=== PATIENT | female | born 1990 | race Two or more races ===

== ENCOUNTER 2019-12-02 12:37 | Outpatient (AMB) | payer MEDICAID, SELFPAY ==
--- NOTE | 2019-12-02 14:02 | URCARE_ITS ---
Intake Ht./Wt. Decline/Exclusions Patient Declined Height and Weight this visit: No PT Meets exclusion criteria: No Vital Signs 12/02/19 14:05 Height 5 ft 2 in Height Method Measured Weight 91.626 kg Weight Measurement Method Standing Scale BMI 36.9 Temp 98.5 F Temp Source Temporal Artery Scan Pulse 71 Pulse Source Monitor Respiration 18 BP 130/80 Blood Pressure Source Automatic Cuff Blood Pressure Location Right Upper Arm Position Sitting Pulse Oximetry (%) 99 Oxygen Delivery Method Room Air Comment pt is 8 wks Intake [employer] (last 14 days): No [employer] (last 14 days): No Been in Contact w/Anyone Being Evaluated for Coronavirus (last 14 days): No Been in Close Contact w/Anyone Dx w/Coronavirus: No Zika Travel: No Been in contact w/anyone who has been Dx w/Zika Virus: No Been in contact w/anyone sick during travel outside country: No Patient >or equal to 18 years BMI outside of range 18.5-24.9: Yes Visit Reasons: UC Urinary Tract Infection Primary Care Provider: Shane Trivedi Is patient in pain?: Yes Pain Location:: pelvic/urethral Lacey-Boyd/Numerical: 8 Pain Scale Used: Numeric (1 - 10) Triage Triage Allergy / Med Rec Allergies No Known Allergies Allergy (Unknown, Verified 12/02/19 14:21) Medication Reconciliation No Known Home Medications 12/02/19 [History Confirmed 12/02/19] acetaminophen ER 650 mg tablet,extended release 650 mg PO Q8H 10 Days #30 tab 12/02/19 [Rx] nitrofurantoin monohydrate/macrocrystals 100 mg capsule 100 mg PO Q12H 7 Days #14 cap 12/02/19 [Rx] Band Placement: Patient Identification TOMÁS: 1-Yao-Yeangx Arrival Mode of Arrival: Private Vehicle Method of Arrival: Ambulatory Accompanied By: Self Prehospital Treatment: none PCP or OBGYN visit in last 3 months: Yes Language Preferred Language: [place] Middle [employer] Tutor Required: No Female History Now: Yes Weeks Gestation: 8 Last Menstrual Period: 10/15/19 Expected Date of Delivery: 07/07/20 : No Social History Alcohol / Drugs Hx Alcohol Use: No Hx Substance Use: No Safety Do You Feel Safe at Home: Yes Authorities Contacted: N/A [place] Fall Scale Special Populations Patient Comatose, Paralyzed or Immobile: No Patient Under the Age of 44 Years Old: No Assessment History of falling; immediate or within 3 months: No Secondary diagnosis: No Ambulatory aid: None IV Infusion: No Gait/Transferring: Normal/bedrest/immobile Mental Status: Oriented to own ability Score Score: 0 Risk Level/Action Risk Level: Low Risk Action: Good Basic Nursing Care Fall Star Level 1 Fall Star Level 1: Yes Patient Education Topic Education Topics: Plan of Care Teaching Recipient: Patient Readiness, Motivation to Learn: Active Methods: Verbal instruction Educ Materials Suggested by INFO Button/Rx Monograph Given: No Response: Verbalize Understanding Middle School Tutor Required: No [facility] Hx Congestive Heart Failure: No Hx Diabetes Mellitus Type 1: No Hx Diabetes Mellitus Type 2: No Hx Renal Disease: No Hx Chronic Obstructive Pulmonary Disease (COPD): No Past Medical History Reviewed and agree with Nursing documentation.: Yes Past Medical History History Provided By: Medical Record and Patient Past Medical History: Yes Cardiac Medical History Hx Congestive Heart Failure: No Endocrine Medical History Hx Diabetes Mellitus Type 1: No Hx Diabetes Mellitus Type 2: No Genitourinary Medical History Hx Renal Disease: No Respiratory Medical History Hx COPD: No ENT Surgical History Hx Tonsillectomy: Yes HPI UTI - Female Current symptoms: Reports dysuria and urinary urgency HPI Comments Details: 29-year-old female who is currently 8 weeks presents to the clinic with complaint of urinary urgency and frequency for the past 48 hours. She denies shortness of breath, cough, fever, chills or flank pain, she denies tobacco or alcohol use. She denies any recent travel Review of Systems (UC) Review of Systems All systems reviewed & no additional complaints except as documented Const Constitutional: Reports as per HPI and Denies headache(s) Eyes Eyes: Reports as per HPI, Denies bulging eyes and Denies change in vision ENT Ears. Nose, Mouth, and Throat: Reports as per HPI, Denies ear pain and Denies headache(s) Card Cardiovascular: Denies chest pain, Denies chest pain at rest and Denies foot sweeling Resp Respiratory: Denies chest congestion, Denies cough and Denies pain on inspiration GI Gastrointestinal: Denies belching and Denies change in bowel habits Genitourinary: Reports as per HPI, Reports painful urination and Reports urinary urgency Neuro Neurologic: Denies headache(s) Exam (UC) Limitations: no limitations, altered mental status and language barrier Head exam: atraumatic, normocephalic and normal inspection Eye exam: Reports normal appearance and Reports EOMI ENT exam: Present normal exam, TM's normal bilaterally and normal oropharynx Chest/Breast Exam: Present normal inspection SPO2%: 99% Respiratory exam: Present normal lung sounds bilaterally and normal respiratory effort Cardiovascular exam: Present regular rate and regular rhythm Abdominal Exam: Present non-distended; Absent ascites, Fong's sign and tenderness at McBurney's Point Abdominal tenderness: Present mild and suprapubic Neurological Exam: Present alert, awake and oriented X3 Speech: Present fluid speech Office Procedures Level of Care Nursing/Assessment/Reassessment Patient Status: Established Patient Nursing Assessment/Reassessment: Triage Asessment, Initial Vital Signs and RN General Assessments Coordination of Care: DC Instructions Simple 1-2 sets, Lab/Imaging Orders and Specimen Collection Established Patient Charge Established Patient Point Assignment: 65 Established Patient Point Assignment: EP Level 2 (40-75) Procedures: Pulse Ox reading: Yes Assessment and Plan Assessment & Plan (1) Urinary tract infection: Plan Details Other Medications: New: nitrofurantoin monohyd/m-cryst 100 mg (Macrobid) must administer with a meal/food 100 mg PO Q12H 7 days 14 caps 0RF acetaminophen ER (Tylenol 8 Hour) 650 mg PO Q8H 10 days 30 tabs 0RF Other Orders: Orders: Urine Chem 10, Urgent Care Today Urine Culture Today Primary Care Provider: Shane Trivedi Instructions: Anatomy Urinary Tract Fem ED UTI Cystitis Female Additional Information PA/MEMORIAL ADVISER Supervising Physician: Doc Ken DC Evaluation Discharge Information Seen, Treated and Released by Provider: No Left Prior to Receiving Discharge Instructions: No Transfer to Outside Facility: No Vital Signs Vitals Signs N/A: Yes Discharge Information Condition on Discharge: Stable Mode of Discharge: Ambulatory Discharge Transportation: Private Vehicle Instructions Middle School Tutor Required: No Discharge Instructions Given To: Patient Was Follow up Care Ordered: Yes Verbalizes Understanding of Discharge Instructions: Yes [facility] information card provided?: No Patient plan follow up w/PCP for [facility]: No
[2019-12-02 14:05] VITALS: BP 130/80; PULSE 71; RESP 18; TEMP 36.9; O2SAT 99; BMI 36.9
[2019-12-02 14:15] LABS: Bilirubin,Urine Clinitek Negative (Negative); Blood,Urine Clinitek 2+ (Negative); Glucose, Urine Clinitek Negative (Negative); Ketones,Urine Clinitek 3+ (Negative); Leukocyte Esterase,Urine Clin 3+ (Negative); Nitrite,Urine Clinitek Positive (Negative); Protein,Urine Clinitek Trace (Neg - Trace); Specific Gravity,Urine Clin 1.015 (1.001-1.030); Urobilinogen,Urine Clinitek 0.2 mg/dL (0.0-1.0)
== END 2019-12-02 14:32 | disposition home or self-care (01) ==
PROVIDERS: Referring Provider Physician Assistant; Visit Provider Physician Assistant

== ENCOUNTER 2024-10-26 16:42 | Emergency (ER) | payer MEDICAID, SELFPAY ==
[2024-10-26 16:42] VITALS: BMI 29.8
[2024-10-26 16:51] VITALS: BP 109/70; PULSE 76; RESP 18; TEMP 36.8; O2SAT 97
--- NOTE | 2024-10-26 17:50 | XR_ITS ---
Examination: Abdomen sonogram, Limited Date and time of exam: October 26, 2024 1837 hrs. Indications: Right upper abdominal pain after eating beginning one week ago Technique: Real-time duarte scale transabdominal sonographic images of the upper abdomen obtained. Findings: Multiple gallstones, gallbladder wall 0.3 cm no edema Common bile duct 0.5 cm Pancreatic head 3.0 cm Liver 15.4 cm fatty infiltration smooth contour no focal liver lesions Normal hepatopedal portal venous flow Patent IVC Impression: Cholelithiasis, negative for cholecystitis
--- NOTE | 2024-10-26 17:51 | PD.EDRME ---
Rapid Medical Screening Exam RME Arrival date/time: 10/26/24 16:42 84-year-old female presents emergency department with complaints of upper epigastric abdominal pain for 1 week. History of gastric sleeve I have greeted and performed a focused initial assessment of this patient. Initial appropriate labs ordered at this time. A comprehensive ED assessment and evaluation of the patient and analysis of all test and completion of medical decision making process will be conducted by additional ED provider. Chief Complaint: Abdominal Pain Time Seen by Provider: 10/26/24 17:32 Vital signs: Vital Signs Temperature 98.3 F 10/26/24 16:51 Pulse Rate 76 10/26/24 16:51 Respiratory Rate 18 10/26/24 16:51 Blood Pressure 109/70 10/26/24 16:51 Pulse Oximetry (%) 97 10/26/24 16:51 Oxygen Delivery Method Room Air 10/26/24 16:51
[2024-10-26 18:24] LABS: Basophils # (Auto) 0.1 Thou/mm3 (0.0-0.2); Basophils % (Auto) 1 % (0-2.5); Eosinophils # (Auto) 0.1 Thou/mm3 (0.0-0.5); Eosinophils % (Auto) 2 % (0-10); Immature Granulocytes % (Auto) 0 % (0-0); Immature Granulocytes Auto 0.01 Thou/mm3 (0.00-0.00); Lymphocytes # (Auto) 2.5 Thou/mm3 (1.0-4.8); Lymphocytes % (Auto) 37 % (10-50); Mean Corpuscular HGB Conc 28.6 g/dl (31.0-37.0); Mean Corpuscular Hemoglobin 18.7 pg (25.0-35.0); Mean Corpuscular Volume 65 fL (80-100); Monocytes # (Auto) 0.4 Thou/mm3 (0.0-0.8); Monocytes % (Auto) 6 % (0-12); Neutrophils # (Auto) 3.5 Thou/mm3 (1.8-7.7); Neutrophils % (Auto) 54 % (37-80); Nucleated Red Blood Cell % 0 /100 WBC (0); Platelet Count 317 Thou/mm3 (140-440); RDW Standard Deviation 40.3 fL (36.4-46.3); Red Blood Count 4.28 Miln/mm3 (4.00-5.20); White Blood Count 6.6 Thou/mm3 (3.6-11.0)
[2024-10-26 18:44] LABS: Alanine Aminotransferase 17 U/L (10-49); Albumin, Serum 4.6 gm/dL (3.5-5.0); Albumin/Globulin Ratio 1.5 (1.2-2.2); Alkaline Phosphatase 66 U/L (46-116); Anion Gap 5 (7-16); Aspartate Amino Transferase 19 U/L (0-34); BUN/Creatinine Ratio 28 Ratio (12-20); Bilirubin,Total 0.4 mg/dL (0.3-1.2); Blood Urea Nitrogen 17 mg/dL (9-23); Calcium 8.9 mg/dL (8.3-10.6); Calcium (Corrected) 8.9 mg/dL (8.5-10.1); Carbon Dioxide 23.9 mMol/L (20.0-31.0); Chloride 109 mMol/L (98-107); Creatinine (Component) 0.6 mg/dL (0.6-1.3); Estimated Creatinine Clearance 121.9 mL/min (>60); Glucose 91 mg/dL (74-106); Lipase 49 U/L (12-53); Osmolality,Calculated 277 (275-295); Potassium 3.8 mMol/L (3.4-5.1); Sodium 138 mMol/L (136-145); Total Protein 7.6 gm/dL (5.7-8.2); eGFR > 60 See Note
[2024-10-26 19:26] LABS: Collection Type, Urine Clean Catch
[2024-10-26 19:47] LABS: Bilirubin,Urine Negative (Negative); Blood,Urine Negative (Negative); Clarity,Urine Clear (Clear/Hazy); Color,Urine Lt-Yellow (Lt Yel-Yel); Glucose, Urine Negative (Negative); Ketones,Urine Negative (Negative); Leukocyte Esterase,Urine Negative (Negative); Nitrite,Urine Negative (Negative); Protein,Urine Trace (Neg - Trace); RBC,Urine 4 /hpf (0-3); Specific Gravity,Urine 1.036 (1.001-1.035); Squamous Epithelial Cell,Urine 3 /hpf (0-5); Urobilinogen,Urine Negative mg/dL (0.0-1.0); WBC,Urine 1 /hpf (0-5)
--- NOTE | 2024-10-26 19:55 | EDNOTE_ITS ---
ED Abdominal Pain RME/HPI General Chief Complaint: Abdominal Pain Stated complaint: ABDOMINAL PAIN X1 WEEK Time seen by provider: 10/26/24 17:32 Arrival date/time: 10/26/24 16:42 RME / HPI RME / HPI narrative: 34-year-old female patient with a significant history of gastric sleeve, came in for evaluation regarding epigastric pain, for 1 week, it comes and goes, usually after eating, severity moderate described as crampy. Denies any vomiting denies any fever denies any diarrhea denies any constipation denies any other complaints. No medications taken prior to arrival. Related Data Home Medications ?Medication ?Instructions ?Recorded ?Confirmed vits no.124-ferrous fum 1 tab PO QDAY 05/09/23 06/23/24 27 mg iron-folic acid 800 mcg tablet ( Vitamin) ferrous sulfate 325 mg (65 mg 325 mg PO DAILY 06/23/24 06/23/24 iron) tablet (iron) Previous Rx's ?Medication ?Instructions ?Recorded docusate sodium 100 mg capsule 100 mg PO BID #60 caps 06/23/24 (Colace) ibuprofen 600 mg tablet 600 mg PO Q6H PRN pain #90 tabs 06/23/24 lanolin 50 % topical ointment 1 applic topical TID PRN skin 06/23/24 irritation #15 tubes dicyclomine 20 mg tablet 20 mg PO QID PRN abdominal pain 10/26/24 #30 tabs Allergies Allergy/AdvReac Type Severity Reaction Status Date / Time No Known Allergies Allergy Unknown Verified 10/26/24 16:45 Course Quality Measures none Orders Category Date Time Status US gall bladder Stat Exams 10/26/24 17:50 Completed CBC Stat Lab 10/26/24 18:14 Completed Comprehensive Metabolic Panel Stat Lab 10/26/24 18:14 Completed HCG Qualitative,Urine Stat Lab 10/26/24 19:03 Received Lipase Stat Lab 10/26/24 18:14 Completed Urinalysis Stat Lab 10/26/24 19:03 Received Vital Signs Vital signs: Vital Signs Temperature 98.3 F 10/26/24 16:51 Pulse Rate 76 10/26/24 16:51 Respiratory Rate 18 10/26/24 16:51 Blood Pressure 109/70 10/26/24 16:51 Pulse Oximetry (%) 97 10/26/24 16:51 Oxygen Delivery Method Room Air 10/26/24 16:51 Abdominal Pain MDM MDM Narrative MDM Narrative:: 34-year-old female patient with a significant history of gastric sleeve, came in for evaluation regarding epigastric pain, for 1 week, it comes and goes, usually after eating, severity moderate described as crampy. Denies any vomiting denies any fever denies any diarrhea denies any constipation denies any other complaints. No medications taken prior to arrival. Patient's workup is significant for cholelithiasis with no sign of acute cholecystitis. LFTs are normal no leukocytosis noted. Patient clinically is not having sign of acute cholecystitis. Patient still discharged home Patient data External records reviewed:: None Clinical information provided by:: none Social determinants that could affect healthcare access:: none Patient has the following chronic illnesses:: History of gastric sleeve How is presenting disease/condition affected by chronic disease/condition?: exacerbated by Evaluation data The following diagnostics were reviewed and interpreted by me:: lab results and radiology exam(s) Lab and/or radiology exams considered but not ordered:: None Interpretation Summary: Laboratory workup came back unremarkable. Ultrasound showed cholelithiasis with no sign of acute cholecystitis. Medications / Prescriptions Medications or Prescriptions considered but not ordered:: None Medication administrations:: None Consultations Consultation(s) initiated? (list below): No Diagnosis Differential diagnosis abdominal pain: abdominal pain, pancreatitis and other (Gallstone) Most likely diagnosis given after review of the tests above:: Gallstone Admission Indicated Admission indicated?: not indicated Admission Request Was there a request for admission?: No Disposition Plan Disposition Plan: Discharge Discharge Attestation Discharge Attestation: The patient and all family members were given an opportunity to ask questions and understood the discharge instructions. Discharge instructions specifically effects, indications for sooner follow up or return to the emergency department, and the expected course of current diagnosis. Patient condition: Stable Discharge Plan Plan Patient Disposition: HOME (Self Care) Disposition Comment: stable Prescriptions/Referrals Prescriptions/Med Rec: New dicyclomine 20 mg tablet 20 mg PO QID PRN (Reason: abdominal pain) Qty: 30 0RF No Action Vitamin 27 mg iron- 800 mcg Tablet 1 tab PO QDAY ferrous sulfate [iron] 325 mg (65 mg iron) Tablet 325 mg PO DAILY docusate sodium [Colace] 100 mg capsule 100 mg PO BID Qty: 60 0RF ibuprofen 600 mg tablet 600 mg PO Q6H PRN (Reason: pain) Qty: 90 0RF lanolin 50 % ointment 1 applic topical TID PRN (Reason: skin irritation) Qty: 15 0RF Referrals: Shane Trivedi MD [Primary Care Provider] - In 1 week Problem List Clinical Impression: Biliary colic, Gallstone Patient/Caregiver Discharge Instructions Discharge Activity: activity as tolerated Education Materials: What Are Gallstones, Treating Gallstones Additional Instructions: Thank you for the opportunity for serving you today. You are stable for discharged . You are advised to: Follow-up with your PCP in 1 to 2 days and ask for referral to general surgeon Return to ED for worsening of symptoms Increase oral fluids Take medication as prescribed Please avoid eating fatty, greasy, fried foods Print Language: Kyrgyz Stand Alone Forms: Anita Award Info., Patient Portal Info Letter PA/BOAT DIESEL MOTOR MECHANIC Supervising Physician ELVIS/BOAT DIESEL MOTOR MECHANIC Supervising Physician: MD Jose Enrique
[2024-10-26 20:05] LABS: HCG Qualitative,Urine Negative
== END 2024-10-26 20:03 | disposition home or self-care (01) ==
PROVIDERS: Nurse Practitioner Primary Care; Emergency Provider Emergency Medicine; PCP Family Medicine
DX: K80.70 Calculus of gallbladder and bile duct without cholecystitis without obstruction (principal)
CPT/HCPCS: 36415; 76705; 80053; 81001; 81025; 83690; 85025; 99284

== ENCOUNTER 2025-01-24 17:21 | Emergency (ER) | payer MEDICAID, SELFPAY ==
[2025-01-24 18:03] VITALS: BP 126/77; PULSE 75; RESP 18; TEMP 37.3; O2SAT 99; BMI 29.2
[2025-01-24 18:57] LABS: Basophils % (Auto) 1 % (0-2.5); Eosinophils # (Auto) 0.1 Thou/mm3 (0.0-0.5); Eosinophils % (Auto) 1 % (0-10); Hematocrit 29.8 % (36.0-46.0); Immature Granulocytes % (Auto) 0 % (0-0); Immature Granulocytes Auto 0.01 Thou/mm3 (0.00-0.00); Lymphocytes # (Auto) 2.1 Thou/mm3 (1.0-4.8); Lymphocytes % (Auto) 34 % (10-50); Mean Corpuscular HGB Conc 29.2 g/dl (31.0-37.0); Mean Corpuscular Hemoglobin 18.4 pg (25.0-35.0); Mean Corpuscular Volume 63 fL (80-100); Monocytes # (Auto) 0.3 Thou/mm3 (0.0-0.8); Monocytes % (Auto) 6 % (0-12); Neutrophils # (Auto) 3.6 Thou/mm3 (1.8-7.7); Neutrophils % (Auto) 59 % (37-80); Nucleated Red Blood Cell % 0 /100 WBC (0); Platelet Count 300 Thou/mm3 (140-440); RDW Standard Deviation 39.3 fL (36.4-46.3); Red Blood Count 4.73 Miln/mm3 (4.00-5.20); White Blood Count 6.1 Thou/mm3 (3.6-11.0)
--- NOTE | 2025-01-24 19:14 | PD.EDDIZZY ---
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 Limitations: no limitations Related Data Home Medications ?Medication ?Instructions ?Recorded ?Confirmed vits no.124-ferrous fum 1 tab PO QDAY 05/09/23 06/23/24 27 mg iron-folic acid 800 mcg tablet ( Vitamin) ferrous sulfate 325 mg (65 mg 325 mg PO DAILY 06/23/24 06/23/24 iron) tablet (iron) Previous Rx's ?Medication ?Instructions ?Recorded docusate sodium 100 mg capsule 100 mg PO BID #60 caps 06/23/24 (Colace) ibuprofen 600 mg tablet 600 mg PO Q6H PRN pain #90 tabs 06/23/24 lanolin 50 % topical ointment 1 applic topical TID PRN skin 06/23/24 irritation #15 tubes dicyclomine 20 mg tablet 20 mg PO QID PRN abdominal pain 10/26/24 #30 tabs Allergies Allergy/AdvReac Type Severity Reaction Status Date / Time No Known Allergies Allergy Unknown Verified 01/24/25 17:23 Review of Systems Review of Systems Systems Reviewed: All systems reviewed, normal except as documented Constitutional Constitutional: Reports system reviewed and no additional complaints, except as documented, Denies fever(s), Denies headache(s) and Reports weakness ENT Ears, Nose, Mouth, and Throat: Denies disequilibrium, Denies headache(s) and Reports vertigo Cardiovascular Cardiovascular: Reports system reviewed and no additional complaints, except as documented, Denies chest pain and Denies dyspnea Respiratory Respiratory: Reports system reviewed and no additional complaints, except as documented, Denies cough and Denies dyspnea Gastrointestinal Gastrointestinal: Reports system reviewed and no additional complaints, except as documented, Denies abdominal pain, Denies nausea and Denies vomiting Neurologic Neurologic: Reports system reviewed and no additional complaints, except as documented, Reports as per HPI, Denies confusion, Denies disequilibrium, Denies headache(s), Reports vertigo and Reports weakness Psychiatric Psychiatric: Denies confusion Past Medical History Past Medical History NEUROLOGIC: Negative Neurological Disorders or Seizures CARDIAC: Negative Cardiac Disorders or Congestive Heart Failure RESPIRATORY: Negative Chronic Obstructive Pulmonary Disease (COPD) or Asthma GASTROINTESTINAL: Negative Gastrointestinal Disorders GENITOURINARY: Negative Genitourinary Disorders or Renal Disease MUSCULOSKELETAL: Negative Musculoskeletal Disorders or Scoliosis ENDOCRINE: Negative Endocrine Disorders, Diabetes Mellitus Type 1 or Diabetes Mellitus Type 2 HEMATOLOGIC: Positive Blood Disorders (06/05/24, received 3 units) and Anemia PSYCHO/SOCIAL: Negative Depression, Anxiety or Depression OTHER HISTORY: Positive Hospitalization (PTL at 35 weeks) and Blood Transfusions; Negative Autoimmune Disease, Blood Transfusion Reaction or Anesthesia Reactions Family History FAMILY HISTORY: Positive Family Cardiac Disorders (granparents heart disease); Negative Family Psychiatric Problems, Family Respiratory Disorders, Family Gastrointestinal Problems, Family Cancer, Family Surgery or Family Anesthesia Reaction Surgical History SURGICAL: Positive Tonsillectomy (10 years old); Negative Section Social History SMOKING STATUS: Never smoker ED Exam General Limitations: Present no limitations General appearance: Present alert and in no apparent distress Head Head exam: Present atraumatic Eye Eye exam: Present normal appearance, PERRL and EOMI ENT ENT exam: Present normal exam, normal oropharynx and mucous membranes moist Neck Neck exam: Present normal inspection, full ROM and trachea midline Chest Chest inspection: Present normal inspection and symmetric chest wall rise Respiratory Respiratory exam: Present normal lung sounds bilaterally Cardiovascular Cardiovascular exam: Present regular rate, normal rhythm and normal heart sounds Abdominal Exam Abdominal exam: Present soft and normal bowel sounds Extremities Exam Extremities exam: Present normal inspection and full ROM Back Exam Back exam: Present normal inspection and full ROM Neurological Exam Neurological exam: Present alert, oriented X3 and CN II-XII intact Psychiatric Psychiatric exam: Present normal affect and normal mood Skin Skin exam: Present warm, dry, intact and normal color Course Quality Measures none Orders Category Date Time Status CBC Stat Lab 01/24/25 18:50 Completed CMP [Comprehensive Metabolic Panel] Stat Lab 01/24/25 18:50 Completed Type and Screen Stat Lab 01/24/25 18:50 Completed Vital Signs Vital signs: Vital Signs Temperature 99.1 F 01/24/25 18:03 Pulse Rate 75 01/24/25 18:03 Respiratory Rate 18 01/24/25 18:03 Blood Pressure 126/77 01/24/25 18:03 Pulse Oximetry (%) 99 01/24/25 18:03 Oxygen Delivery Method Room Air 01/24/25 18:03 O2 at 99% on RA and WNLs Dizziness MDM Narrative MDM Narrative:: 34F with history of gastric bypass surgery leading to anemia (patient does not consistently take her vitamins) presents to ED with several weeks of dizziness and weakness. Physical exam reveals clear lungs. RRR. Normal pupil response and EOM. Patient is afebrile, calm, and alert. HgB 8.7. CMP unremarkable. Vocational Rehabilitation Specialist given to take vitamins. Patient data External records reviewed:: [facility] previous records Clinical information provided by:: patient Social determinants that could affect healthcare access:: none Patient has the following chronic illnesses:: gastric bypass How is presenting disease/condition affected by chronic disease/condition?: exacerbated by Evaluation data The following diagnostics were reviewed and interpreted by me:: lab results Lab and/or radiology exams considered but not ordered:: ordered Interpretation Summary: above Medications / Prescriptions Medications or Prescriptions considered but not ordered:: not ordered Medication administrations:: n/a Consultations Consultation(s) initiated? (list below): No Diagnosis Dizziness Differential Diagnosis: adverse reaction to drug, benign paroxysmal positional vertigo, orthostatic hypotension, vertebral basilar insufficiency, cerebrovascular accident, acute vestibular neuronitis, transient cerebral ischemia and other (anemia) Most likely diagnosis given after review of the tests above:: anemia Admission Indicated Admission indicated?: not indicated Admission Request Was there a request for admission?: No Disposition Plan Disposition Plan: Discharge Discharge Attestation Discharge Attestation: The patient and all family members were given an opportunity to ask questions and understood the discharge instructions. Discharge instructions specifically effects, indications for sooner follow up or return to the emergency department, and the expected course of current diagnosis. Patient condition: Stable Discharge Plan Plan Patient Disposition: HOME (Self Care) Disposition Comment: Stable Prescriptions/Referrals Prescriptions/Med Rec: No Action Vitamin 27 mg iron- 800 mcg Tablet 1 tab PO QDAY dicyclomine 20 mg tablet 20 mg PO QID PRN (Reason: abdominal pain) Qty: 30 0RF ferrous sulfate [iron] 325 mg (65 mg iron) Tablet 325 mg PO DAILY docusate sodium [Colace] 100 mg capsule 100 mg PO BID Qty: 60 0RF ibuprofen 600 mg tablet 600 mg PO Q6H PRN (Reason: pain) Qty: 90 0RF lanolin 50 % ointment 1 applic topical TID PRN (Reason: skin irritation) Qty: 15 0RF Referrals: No Primary/Family,Physician [Primary Care Provider] - In 1 week Problem List Clinical Impression: Anemia Patient/Caregiver Discharge Instructions Education Materials: ED Anemia Type Not Specified Additional Instructions: Please follow-up with PCP within 24-48 hours and return immediately if symptoms worsen. Make sure to take your vitamins daily. Print Language: St [place] Stand Alone Forms: Patient Portal Info Letter PA/BOOM STICK WORKER Supervising Physician PA/BOOM STICK WORKER Supervising Physician: Dr. Lee
[2025-01-24 19:22] LABS: Alanine Aminotransferase 12 U/L (10-49); Albumin, Serum 4.6 gm/dL (3.5-5.0); Albumin/Globulin Ratio 1.5 (1.2-2.2); Alkaline Phosphatase 64 U/L (46-116); Anion Gap 10 (7-16); Aspartate Amino Transferase 18 U/L (0-34); BUN/Creatinine Ratio 20 Ratio (12-20); Bilirubin,Total 0.4 mg/dL (0.3-1.2); Blood Urea Nitrogen 12 mg/dL (9-23); Calcium 8.9 mg/dL (8.3-10.6); Calcium (Corrected) 8.9 mg/dL (8.5-10.1); Carbon Dioxide 23.2 mMol/L (20.0-31.0); Chloride 107 mMol/L (98-107); Creatinine (Component) 0.6 mg/dL (0.6-1.3); Estimated Creatinine Clearance 135.5 mL/min (>60); Globulin 3.1 gm/dL (2.3-3.5); Glucose 96 mg/dL (74-106); Osmolality,Calculated 279 (275-295); Potassium 3.6 mMol/L (3.4-5.1); Sodium 140 mMol/L (136-145); Total Protein 7.7 gm/dL (5.7-8.2); eGFR > 60 See Note
[2025-01-24 20:21] LABS: Hemoglobin 8.7 g/dL (12.0-16.0)
== END 2025-01-24 21:07 | disposition home or self-care (01) ==
PROVIDERS: Physician Assistant; Emergency Provider Emergency Medicine
DX: D64.9 Anemia, unspecified (principal)
CPT/HCPCS: 36415; 80053; 85025; 86850; 86900; 86901; 99283

== ENCOUNTER 2025-01-31 10:00 | Day surgery (SDC) | payer MEDICAID, SELFPAY ==
[2025-01-29 07:59] VITALS: BMI 32.5
[2025-01-29 09:18] LABS: Basophils % (Auto) 1 % (0-2.5); Eosinophils # (Auto) 0.1 Thou/mm3 (0.0-0.5); Eosinophils % (Auto) 2 % (0-10); Hematocrit 29.6 % (36.0-46.0); Immature Granulocytes % (Auto) 0 % (0-0); Immature Granulocytes Auto 0.01 Thou/mm3 (0.00-0.00); Lymphocytes # (Auto) 1.9 Thou/mm3 (1.0-4.8); Lymphocytes % (Auto) 41 % (10-50); Mean Corpuscular HGB Conc 28.4 g/dl (31.0-37.0); Mean Corpuscular Hemoglobin 18.3 pg (25.0-35.0); Mean Corpuscular Volume 65 fL (80-100); Monocytes # (Auto) 0.3 Thou/mm3 (0.0-0.8); Monocytes % (Auto) 7 % (0-12); Neutrophils # (Auto) 2.3 Thou/mm3 (1.8-7.7); Neutrophils % (Auto) 50 % (37-80); Nucleated Red Blood Cell % 0 /100 WBC (0); Platelet Count 318 Thou/mm3 (140-440); RDW Standard Deviation 40.2 fL (36.4-46.3); Red Blood Count 4.59 Miln/mm3 (4.00-5.20); White Blood Count 4.7 Thou/mm3 (3.6-11.0)
[2025-01-29 09:19] LABS: Hemoglobin 8.4 g/dL (12.0-16.0)
[2025-01-29 09:25] LABS: Alanine Aminotransferase 11 U/L (10-49); Albumin, Serum 4.3 gm/dL (3.5-5.0); Albumin/Globulin Ratio 1.5 (1.2-2.2); Alkaline Phosphatase 64 U/L (46-116); Anion Gap 5 (7-16); Aspartate Amino Transferase 18 U/L (0-34); BUN/Creatinine Ratio 22 Ratio (12-20); Bilirubin,Total 0.5 mg/dL (0.3-1.2); Blood Urea Nitrogen 13 mg/dL (9-23); Calcium 8.9 mg/dL (8.3-10.6); Calcium (Corrected) 8.9 mg/dL (8.5-10.1); Carbon Dioxide 26.7 mMol/L (20.0-31.0); Chloride 110 mMol/L (98-107); Creatinine (Component) 0.6 mg/dL (0.6-1.3); Estimated Creatinine Clearance 127.3 mL/min (>60); Globulin 2.9 gm/dL (2.3-3.5); Glucose 105 mg/dL (74-106); Osmolality,Calculated 283 (275-295); Potassium 4.1 mMol/L (3.4-5.1); Sodium 142 mMol/L (136-145); Total Protein 7.2 gm/dL (5.7-8.2); eGFR > 60 See Note
[2025-01-29 09:33] LABS: HCG,Qualitative Serum Negative
[2025-01-31] VITALS (8 sets, daily range): BP systolic 110–134; BP diastolic 64–83; PULSE 58–81; RESP 12–20; TEMP 36.7–37.1; O2SAT 100; BMI 31.6
--- NOTE | 2025-01-31 12:33 | SUR.PHASEI ---
1233 Patient arrived to recovery resting comfortably in [facility], on oxygen 8L via oxy mask with an oral airway in place, breathing unlabored, vital signs stable, denies pain, dressing intact to abdomen; dermabond, no bleeding noted, report received from Dr. Amanda and Gudelia OSBORN/Ema OSBORN
--- NOTE | 2025-01-31 12:34 | ESOP_ITS ---
Date of Procedure 01/31/25 Pre Op Diagnosis Symptomatic cholelithiasis Post Op Diagnosis Cholelithiasis with cholecystitis Procedure Laparoscopic cholecystectomy Findings Moderately distended gallbladder with gallstones and chronic cholecystitis Procedure Description Patient was brought into the operating room in supine position. After adm inistration of general endotracheal anesthesia abdomen was prepped and draped in standard surgical manner. A Veress needle was inserted through the umbilicus and pneumoperitoneum was obtained up to 15 mmHg. The Veress needle was then removed, a 5 mm infraumbilical incision was made and the 5mm trocar was inserted. Laparoscopic camera was placed. Under direct visualization a laparoscopic camera a 10 mm trocar was placed in subxiphoid and two 5 mm trocars placed in right upper quadrant. The gallbladder was identified and was noted to be moderately distended with gallstones and chronic cholecystitis. It was retracted cephalad and laterally. Dissection started near the infundibulum of gallbladder where cystic duct and gallbladder junction clearly identified. The cystic duct was circumferentially dissected off the peritoneum and surrounding inflammatory tissue. The critical view of safety was clearly demonstrated. Cystic duct was then divided between 2 endoclips proximally and one distally. The cystic artery was similarly dissected and divided. The gallbladder was then from the liver bed using electrocautery. The gallbladder was then placed inside an Endo Catch and removed from the abdomen utilizing subxiphoid trocar site. The area was copiously and thoroughly washed and irrigated, all the fluid was suctioned and the suction fluid returned clear. Hemostasis achieved using electrocautery. Endoclips noted be in place and intact without any bleeding or any leakage. Hemostasis was adequate and satisfactory. The subxiphoid trocar sites fascial defect was closed with 0 Vicryl using Endo Closure device. Instruments and trocars removed, pneumoperitoneum was evacuated and the incisions closed with 4-0 Monocryl in subcuticular fashion. Instrument needle and sponge counts were all reported to be correct X2. Patient tolerated the procedure well, was extubated, breathing spontaneously and without difficulty and was transferred to postanesthesia care in stable condition. Anesthesia GETA and local Pathology / specimen Other (Gallbladder and contents) Estimated Blood Loss 10 Condition Stable Disposition PACU Surgeon Mariaelena Mcgee MD Surgical Staff Operation Date: 01/31/25 11:45 Case Staff Anesthesiologist: Rico Amanda RN First Assistant: Sharmin Omer
[2025-01-31] MEDS: HYDROmorphone INJ 2 MG/ML VIAL 0.4 MG IV ×2 (12:54→13:00)
[2025-01-31] MEDS: ACETAMINOPHEN IVPB 1,000 MG/100 ML VIAL 250 MG IV (12:56)
[2025-01-31] MEDS: MORPHINE SULF INJ 10 MG/ML VIAL 3 MG IV (13:15)
--- NOTE | 2025-01-31 13:44 | SUR.PHASEII ---
1344 Patient meets discharge criteria from recovery, awake and alert, breathing unlabored, vital signs stable, per patient her pain is tolerable, dressing intact; no bleeding noted, patient drinking 7up; denies nausea, assisted with dressing into her clothing by her partner, discharge instructions given to patient and patients partner, both receptive of instructions, patients partner signed discharge instructions. Patient given all her belongings prior to discharge, transported via wheelchair and left in a private vehicle.
== END 2025-01-31 13:44 | disposition home or self-care (01) ==
PROVIDERS: PCP Family Medicine; Referring Provider Surgery; Visit Provider Surgery
PROC: 0FT44ZZ Resection of Gallbladder, Percutaneous Endoscopic Approach (ICD-10-PCS; CPT 47562; principal; 2025-01-31 11:30)
DX: K80.10 Calculus of gallbladder with chronic cholecystitis without obstruction (principal)
CPT/HCPCS: 47562; 36415; 80053; 84703; 85025; A4217; A4649; J0131; J0694; J1100; J1885; J2250; J2270; J2405; J2704; J3010; J3490

== ENCOUNTER 2025-06-06 18:47 | Emergency (ER) | payer MEDICAID, SELFPAY ==
[2025-06-06 19:14] VITALS: BP 113/76; PULSE 87; RESP 18; TEMP 37.2; O2SAT 98; BMI 29.6
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
[2025-06-06] MEDS: NAPROXEN 250 MG TABLET 500 MG PO (19:38)
== END 2025-06-06 19:45 | disposition home or self-care (01) ==
PROVIDERS: Emergency Provider Emergency Medicine
DX: S00.431A Contusion of right ear, initial encounter (principal); S10.0XXA Contusion of throat, initial encounter; Y04.0XXA Assault by unarmed brawl or fight, initial encounter
CPT/HCPCS: 99282; A9270